=== PATIENT | female | born 1975 | race Caucasian/White ===

== ENCOUNTER 2023-04-19 20:10 | Emergency (ER) | payer SELFPAY ==
[2023-04-19] MEDS ORDERED: Ketorolac 60 MG/2 ML SDV IM ONE (22:35)
== END 2023-04-19 23:51 | disposition home or self-care (01) ==
LOC: MW.ED 20:10
DX: M54.41 Lumbago with sciatica, right side (principal)
CPT/HCPCS: 96372; 99283; J1885